=== PATIENT | male | born 1960 | race Two or more races ===

== ENCOUNTER → 2022-02-17 | Day surgery (SDC) | payer OTHER ==
[~2022-02-17] VITALS: Ht 175.3 cm; Wt 122.5 kg
[~2022-02-17] MED LIST: EPINEPHrine HCL 1 MG/1 ML AMP ONE; HYDROmorphone HCL 2 MG/ML VL/or syr ONE; LIDOCAINE-2% MPF SDV 5 ML IJ ONE; LISI20TA28 PO; MIDAZOLAM HCL 2MG/2ML 2ml VIAL (1mg/ml) IV ONE; ONDANSETRON HCL 4 MG/2 ML VIAL IV ONE; ONDANSETRON HCL 4 MG/2 ML VIAL IV PRN; PROPOFOL 10 MG/ML 20 ML IV ONE; ROPIVACAINE 0.5% (5MG/ML) 20ML AMPULE IJ ONE; SIMV10TA2 PO; ceFAZolin 1GM/50ML 100 ML IV ONE; fentaNYL CITRATE 100 MCG/2 ML VL IV ONE
[2022-02-17] MEDS: HYDROmorphone HCL 2 MG/ML VL/or syr IV PRN ×3 (09:00→09:23)
[2022-02-17 10:09] VITALS: BP 137/77
== END | disposition home or self-care (01) ==
LOC: SUR 06:08
PROVIDERS: ATTEND Orthopaedic Surgery
DX: S83.241A Other tear of medial meniscus, current injury, right knee, initial encounter (principal); M25.461 Effusion, right knee; M22.41 Chondromalacia patellae, right knee; M65.861 Other synovitis and tenosynovitis, right lower leg; X58.XXXA Exposure to other specified factors, initial encounter; Y93.89 Activity, other specified; Y92.89 Other specified places as the place of occurrence of the external cause; I10 Essential (primary) hypertension; E78.5 Hyperlipidemia, unspecified; Z79.899 Other long term (current) drug therapy; Z20.822 Contact with and (suspected) exposure to COVID-19
CPT/HCPCS: 29881; J0171; J0690; J1170; J2250; J2405; J2704; J2795; J3010; U0003